=== PATIENT | female | born 1975 | race Caucasian/White ===

== ENCOUNTER 2019-02-12 20:37 | Emergency (ER) | payer MEDICAID ==
[~2019-02-12] VITALS: Ht 162.6 cm; Wt 70.0 kg
[~2019-02-12 20:37] MED LIST: CEPH-443 PO; FER325 PO; LEVO500T10 PO; METR-121 PO; PHEN-538 PO
[2019-02-12] MEDS ORDERED: morphine 4 MG/ML VIAL IV STA (22:26)
[2019-02-12] MEDS ORDERED: ONDANSETRON 4 MG INJ IV STA (22:26)
[2019-02-12] MEDS ORDERED: SOD CHLORIDE 0.9% 500 ML IV STA (22:26)
[2019-02-12 22:30] VITALS: Ht 162.6 cm; Wt 70.0 kg
[2019-02-12] MEDS ORDERED: FAMO20TA18 PO (23:00)
--- NOTE | 2019-02-13 00:33 | ERD ---
ER Documentation Chief Complaint Chief Complaint EPIGASTRIC PAIN X TODAY HPI This a 44-year-old female comes in with epigastric and right upper quadrant abdominal pain for 1 day. Denies any fevers or chills. Pain is mild to moderat e in intensity radiation epigastric region to the right upper quadrant. There is associated nausea but no vomiting. No chills. No other current problems. ROS All systems reviewed and are negative except as per history of present illness. Medications Home Meds Reported Medications Famotidine* (Famotidine*) 20 Mg Tablet, 20 MG PO DAILY, #30 TAB 02/12/19 Discontinued Scripts Phenazopyridine Hcl* (Pyridium*) 200 Mg Tab, 200 MG PO TID PRN for URINARY PAIN, #6 TAB Prov:HOLA WATTS MD 05/30/16 Cephalexin* (Keflex*) 500 Mg Capsule, 500 MG PO QID for 5 Days, CAP Prov:HOLA WATTS MD 05/30/16 Ferrous Sulfate* (Ferrous Sulfate*) 325 Mg Tabec, 325 MG PO BID for 30 Days, TAB Prov:CHAYO BERNAL NP 03/31/16 Metronidazole (Flagyl) 500 Mg Tab, 500 MG PO Q8 for 14 Days, TAB Prov:CHAYO BERNAL NP 03/31/16 Levofloxacin* (Levofloxacin*) 500 Mg Tablet, 500 MG PO DAILY for 14 Days, TAB Prov:CHAYO BERNAL NP 03/31/16 Allergies Allergies: Coded Allergies: No Known Allergies (Unverified Allergy, Unknown, 02/12/19) PMhx/Soc History of Surgery: Yes (Tubal ligation) Anesthesia Reaction: No Hx Neurological Disorder: No Hx Respiratory Disorders: No Hx Cardiac Disorders: No Hx Psychiatric Problems: No Hx Miscellaneous Medical Probl: No Hx Alcohol Use: No Hx Substance Use: No Hx Tobacco Use: No Physical Exam Vitals Vital Signs Date Temp Pulse Resp B/P (MAP) Pulse Ox O2 O2 Flow FiO2 Time Delivery Rate 02/13/19 97.4 64 12 98/67 (77) 100 Room Air 00:03 02/12/19 97.4 78 13 106/61 99 Room Air 23:14 (76) 02/12/19 97.4 78 18 121/67 99 Room Air 22:30 (85) 02/12/19 98.8 78 18 134/78 99 22:30 (96) 02/12/19 97.4 75 18 121/67 99 20:59 (85) Physical Exam Const: No acute distress Head: Atraumatic Eyes: Normal Conjunctiva ENT: Normal External Ears, Nose and Mouth. Neck: Full range of motion. No meningismus. Resp: Clear to auscultation bilaterally Cardio: Regular rate and rhythm, no murmurs Abd: Soft, non tender, non distended. Normal bowel sounds Skin: No petechiae or rashes Back: No midline or flank tenderness Ext: No cyanosis, or edema Neur: Awake and alert Psych: Normal Mood and Affect Result Diagram: 02/12/19223802/12/192238 Results 24 hrs Laboratory Tests Test 02/12/19 22:39 White Blood Count 7.3 10^3/ul Red Blood Count 4.71 10^6/ul Hemoglobin 13.0 g/dl Hematocrit 39.8 % Mean Corpuscular Volume 84.5 fl Mean Corpuscular Hemoglobin 27.6 pg Mean Corpuscular Hemoglobin Concent 32.7 g/dl Red Cell Distribution Width 12.3 % Platelet Count 213 10^3/UL Mean Platelet Volume 9.6 fl Immature Granulocytes % 0.400 % Neutrophils % 71.9 % Lymphocytes % 21.8 % Monocytes % 4.8 % Eosinophils % 0.8 % Basophils % 0.3 % Nucleated Red Blood Cells % 0.0 /100WBC Immature Granulocytes # 0.030 10^3/ul Neutrophils # 5.2 10^3/ul Lymphocytes # 1.6 10^3/ul Monocytes # 0.4 10^3/ul Eosinophils # 0.1 10^3/ul Basophils # 0.0 10^3/ul Nucleated Red Blood Cells # 0.0 10^3/ul Urine Color RED Urine Clarity SLIGHTLY CLOUDY Urine pH 7.0 Urine Specific [place] 1.008 Urine Ketones NEGATIVE mg/dL Urine Nitrite NEGATIVE mg/dL Urine Bilirubin NEGATIVE mg/dL Urine Urobilinogen NEGATIVE mg/dL Urine Leukocyte Esterase 1+ Elaina/ul Urine Microscopic RBC > 182 /HPF Urine Microscopic WBC 56 /HPF Urine Squamous Epithelial Cells MODERATE /HPF Urine Hemoglobin 3+ mg/dL Urine Glucose NEGATIVE mg/dL Urine Total Protein 1+ mg/dl Sodium Level 142 mmol/L Potassium Level 3.7 mmol/L Chloride Level 102 mmol/L Carbon Dioxide Level 29 mmol/L Anion Gap 11 Blood Urea Nitrogen 10 mg/dl Creatinine 0.78 mg/dl Est Glomerular Filtrat Rate mL/min > 60 mL/min Glucose Level 109 mg/dl Calcium Level 9.6 mg/dl Total Bilirubin 0.4 mg/dl Direct Bilirubin 0.00 mg/dl Indirect Bilirubin 0.4 mg/dl Aspartate Amino Transf (AST/SGOT) 76 IU/L Alanine Aminotransferase (ALT/SGPT) 50 IU/L Alkaline Phosphatase 94 IU/L Total Protein 7.9 g/dl Albumin 4.5 g/dl Globulin 3.40 g/dl Albumin/Globulin Ratio 1.32 Lipase 44 U/L Current Medications Medications Dose Sig/Bk Start Time Status Last (Trade) Ordered Route PRN Stop Time Admin Dose Reason Admin Sodium 500 ml @ Q1H STAT 02/12/19 DC 02/12/19 Chloride 500 mls/hr IV 22:26 22:53 02/12/19 23:25 Morphine 4 mg ONCE STAT 02/12/19 DC 02/12/19 Sulfate IV 22:26 22:53 (morphine) 02/12/19 22:27 Ondansetron 4 mg ONCE STAT 02/12/19 DC 02/12/19 HCl (Zofran IV 22:26 22:53 Inj) 02/12/19 22:27 Procedures/MDM Emergency department course: Patient seen and evaluated triage nurse. Placed in bed from evaluation. Outside ultrasound and stat x-ray. Is given pain medication and nausea medication along with a fluid bolus. Serial exams are stable. Diagnostic data: Chest X-ray 1V Interpreted by me: Soft Tissue: No acute abnormalities Bones: No acute abnormalities Mediastinum/Cardiac Silhouette/Lungs: [No acute abnormalities] Ultrasound shows cholelithiasis. Please see radiologist full dictation for full report Medical decision making: Patient's gastrointestinal symptoms have stabilized while in the department. No evidence of severe dehydration, sepsis, or surgical abdomen. Extensive discussion with family and patient that occult disease cannot be ruled out. 8 hour recheck for repeat abdominal exam is planned. Departure Diagnosis: Primary Impression: Abdominal pain Abdominal location: unspecified location Qualified Codes: R10.9 - Unspecif ied abdominal pain Condition: Stable ABRAM PHILLIPCorinna Feb 13, 2019 00:33
[2019-02-13] MEDS ORDERED: ONDA4TAB14 PO (00:34)
[2019-02-13] MEDS ORDERED: TRAM50TA2 PO (00:34)
[2019-02-13 01:02] VITALS: BP 97/64; PULSE 62; RESP 14
== END 2019-02-13 01:12 | disposition home or self-care (01) ==
LOC: E/R 20:37
DX: R10.13 Epigastric pain (principal); R10.11 Right upper quadrant pain; R11.0 Nausea
CPT/HCPCS: 36415; 71045; 76705; 80053; 81001; 83690; 85025; 96374; 96375; J2270; J2405; J7040; Z7502

== ENCOUNTER 2019-04-15 06:03 | Emergency (ER) | payer MEDICAID ==
[~2019-04-15] VITALS: Ht 162.6 cm; Wt 79.8 kg
[~2019-04-15 06:03] MED LIST changes: -CEPH-443 PO; +FAMO20TA18 PO; -FER325 PO; -LEVO500T10 PO; -METR-121 PO; +ONDA4TAB14 PO; -PHEN-538 PO; +TRAM50TA2 PO
[2019-04-15 06:12] VITALS: BP 109/67; PULSE 77; RESP 18; Ht 162.6 cm; Wt 79.8 kg
--- NOTE | 2019-04-15 06:29 | ERD ---
ER Documentation Chief Complaint Chief Complaint painful urination the whole nite [facility] Patient is a 44-year-old female with no past medical history presents the ER for concerns of dysuria x1 day. Patient states she is up throughout the night due to dysuria and urinary frequency. Patient denies fevers or chills. Patient denies any hematuria. Patient denies any flank pain. ROS All systems reviewed and are negative except as per history of present illness. Medications Home Meds Active Scripts Ondansetron (Ondansetron Odt) 4 Mg Tab.rapdis, 4 MG PO Q6H PRN for NAUSEA AND/OR VOMITING, #10 TAB Prov:ABRAM PHILLIP 02/13/19 Tramadol HCl (Tramadol HCl) 50 Mg Tablet, 50 MG PO Q4 PRN for PAIN, #20 TAB Prov:ABRAM PHILLIP 02/13/19 Reported Medications Famotidine* (Famotidine*) 20 Mg Tablet, 20 MG PO DAILY, #30 TAB 02/12/19 Allergies Allergies: Coded Allergies: No Known Allergies (Unverified Allergy, Unknown, 02/12/19) PMhx/Soc History of Surgery: Yes (Tubal ligation) Anesthesia Reaction: No Hx Neurological Disorder: No Hx Respiratory Disorders: No Hx Cardiac Disorders: No Hx Psychiatric Problems: No Hx Miscellaneous Medical Probl: No Hx Alcohol Use: No Hx Substance Use: No Hx Tobacco Use: No FmHx Family History: No diabetes Physical Exam Vitals Vital Signs Date Temp Pulse Resp B/P (MAP) Pulse Ox O2 O2 Flow FiO2 Time Delivery Rate 04/15/19 98.0 77 18 109/67 99 06:12 (81) Physical Exam GENERAL: Well-developed, well-nourished female. Appears in no acute distress. HEAD: Normocephalic, atraumatic. EYES: Pupils are equally reactive bilaterally. EOMs grossly intact. No conjunctival erythema. NECK: Supple. No meningismus. Normal range of motion of the neck. LUNG: Clear to auscultation bilaterally. No rhonchi, wheezing, rales or coarse breath sounds. HEART: Regular rate and rhythm. No murmurs, rubs or gallops. ABDOMEN: No scars, ecchymosis or rashes noted. Soft, nontender, and nondistended. Positive bowel sounds in all four quadrants. No rebound tenderness, no guarding. (-) McBurney's point tenderness. No CVA tenderness. BACK: No midline tenderness. EXTREMITIES: Equal pulses bilaterally. No peripheral clubbing, cyanosis or edema. No unilateral leg swelling. NEUROLOGIC: Alert and oriented. Moving all four extremities without any difficulty. Normal speech. Steady gait. SKIN: Normal color. Warm and dry. No rashes or lesions. Results 24 hrs Laboratory Tests Test 04/15/19 06:31 Bedside Urine pH (LAB) 6.0 Bedside Urine Protein (LAB) Negative Bedside Urine Glucose (UA) Negative Bedside Urine Ketones (LAB) Negative Bedside Urine Blood 2+ Bedside Urine Nitrite (LAB) Negative Bedside Urine Leukocyte Esterase (L 2+ POC Beta HCG, Qualitative NEGATIVE Procedures/MDM MEDICAL DECISION MAKING: This is a 44-year-old female who presents to the ER for concerns of pain with urination. Vital signs were reviewed. Patient was afebrile. UA showed 2+ leukocyte esterase. Urine was negative. Given these findings, the patients presentation is most consistent with urinary tract infection. I have a much lower clinical concern for pyelonephritis, nephrolithiasis, appendicitis, diverticulitis, constipation, ectopic , PID, ovarian torsion, or tubo- ovarian abscess. PRESCRIPTIONS: Macrobid DISCHARGE: At this time, patient is stable for discharge and outpatient management. I have instructed the patient to follow-up with his/her primary care physician in 1-2 days. Patient should repeat UA in 2 weeks to check for resolution of urinary tract infection. If symptoms persist, patient may need to see a specialist for further examinations and testing. I have instructed the patient to promptly return to the ER at any time for any new or worsening symptoms including increased pain, fever, nausea, vomiting, urinary changes or weakness. The patient and/or family expressed understanding of and agreement with this plan. All questions were answered. Home care instructions were provided. Disclaimer: Inadvertent spelling and grammatical errors are likely due to EHR/dictation software use and do not reflect on the overall quality of patient care. Also, please note that the electronic time recorded on this note does not necessarily reflect the actual time of the patient encounter. Departure Diagnosis: Primary Impression: UTI (urinary tract infection) Urinary tract infection type: site unspecified Hematuria presence: without hematuria Qualified Codes: N39.0 - Urinary tract infection, site not specified Condition: Fair Patient Instructions: Understanding Urinary Tract Infections (UTIs) Referrals: [facility] YOU HAVE RECEIVED A MEDICAL SCREENING EXAM AND THE RESULTS INDICATE THAT YOU DO NOT HAVE A CONDITION THAT REQUIRES URGENT TREATMENT IN THE EMERGENCY DEPARTMENT. FURTHER EVALUATION AND TREATMENT OF YOUR CONDITION CAN WAIT UNTIL YOU ARE SEEN IN YOUR DOCTORS OFFICE WITHIN THE NEXT 1-2 DAYS. IT IS YOUR RESPONSIBILITY TO MAKE AN APPOINTMENT FOR FOLOW-UP CARE. IF YOU HAVE A PRIMARY DOCTOR --you should call your primary doctor and schedule an appointment IF YOU DO NOT HAVE A PRIMARY DOCTOR YOU CAN CALL OUR PHYSICIAN REFERRAL HOTLINE AT IF YOU CAN NOT AFFORD TO SEE A PHYSICIAN YOU CAN CHOSE FROM THE FOLLOWING [facility] [address] [facility] [address] [facility] [address] [facility] [address] [facility] [address] [facility] [facility] [address] [facility] [facility] YOU HAVE RECEIVED A MEDICAL SCREENING EXAM AND THE RESULTS INDICATE THAT YOU DO NOT HAVE A CONDITION THAT REQUIRES URGENT TREATMENT IN THE EMERGENCY DEPARTMENT. FURTHER EVALUATION AND TREATMENT OF YOUR CONDITION CAN WAIT UNTIL YOU ARE SEEN IN YOUR DOCTORS OFFICE WITHIN THE NEXT 1-2 DAYS. IT IS YOUR RESPONSIBILITY TO MAKE AN APPOINTMENT FOR FOLOW-UP CARE. IF YOU HAVE A PRIMARY DOCTOR --you should call your primary doctor and schedule and appointment IF YOU DO NOT HAVE A PRIMARY DOCTOR YOU CAN CALL OUR PHYSICIAN REFERRAL HOTLINE AT . IF YOU CAN NOT AFFORD TO SEE A PHYSICIAN YOU CAN CHOSE FROM THE FOLLOWING [facility] INSTITUTIONS: [facility] [address] [place] [address] [facility] [address] [place] [address] [facility] [address] [place] [address] Additional Instructions: Llame al doctor MAANA y sindhu campbell ALISTAIR PARA DENTRO DE 1-2 MC.Dgale a la secretaria que nosotros le instruimos hacer esta alistair.Avise o llame si buck condicin se empeora antes de la alistair. Regresa aqui si peor o no mejor. HERNESTO GALLEGOS PA-C April 15, 2019 06:29
[2019-04-15] MEDS ORDERED: NITR-58 PO (06:56)
== END 2019-04-15 06:55 | disposition home or self-care (01) ==
LOC: FTE 06:03
DX: N39.0 Urinary tract infection, site not specified (principal)
CPT/HCPCS: 81003; 81025; Z7502; 99283

== ENCOUNTER 2019-05-08 10:26 | Emergency (ER) | payer SELFPAY ==
[~2019-05-08] VITALS: Ht 162.6 cm; Wt 81.0 kg
[~2019-05-08 10:26] MED LIST changes: +NITR-58 PO
[2019-05-08 10:40] VITALS: BP 104/57; PULSE 59; RESP 18; Ht 162.6 cm; Wt 81.0 kg
== END 2019-05-08 14:55 | disposition left against medical advice (07) ==
LOC: FTE 10:26
DX: Z53.21 Procedure and treatment not carried out due to patient leaving prior to being seen by health care provider (principal)

== ENCOUNTER 2019-06-03 18:13 | Emergency (ER) | payer MEDICAID ==
[~2019-06-03] VITALS: Ht 160 cm; Wt 79.0 kg
[2019-06-03 18:33] VITALS: BP 103/55; PULSE 76; RESP 18; Ht 160 cm; Wt 79.0 kg
--- NOTE | 2019-06-03 19:44 | ERD ---
ER Documentation Chief Complaint Chief Complaint lower abd pain x 3 days HPI 44-year-old female presents for evaluation of lower abdominal pain, described as left lower quadrant with radiation to the flank. She states that she had a similar episode in the past that she was diagnosed with colitis. She is no history of abdominal surgeries, she denies fever, denies nausea vomiting, denies dysuria. Symptoms are intermittent. ROS All systems reviewed and are negative except as per history of present illness. Medications Home Meds Active Scripts Nitrofurantoin Monohyd Macrocr* (Macrobid*) 100 Mg Capsr, 100 MG PO BID for 5 Days, CAP Prov:HERNESTO GALLEGOS PA-C 04/15/19 Ondansetron (Ondansetron Odt) 4 Mg Tab.rapdis, 4 MG PO Q6H PRN for NAUSEA AND/OR VOMITING, #10 TAB Prov:ABRAM PHILLIP 02/13/19 Tramadol HCl (Tramadol HCl) 50 Mg Tablet, 50 MG PO Q4 PRN for PAIN, #20 TAB Prov:ABRAM PHILLIP 02/13/19 Reported Medications Famotidine* (Famotidine*) 20 Mg Tablet, 20 MG PO DAILY, #30 TAB 02/12/19 Allergies Allergies: Coded Allergies: No Known Allergies (Unverified Allergy, Unknown, 02/12/19) PMhx/Soc History of Surgery: Yes (Tubal ligation) Anesthesia Reaction: No Hx Neurological Disorder: No Hx Respiratory Disorders: No Hx Cardiac Disorders: No Hx Psychiatric Problems: No Hx Miscellaneous Medical Probl: No Hx Alcohol Use: No Hx Substance Use: No Hx Tobacco Use: No Physical Exam Vitals Vital Signs Date Temp Pulse Resp B/P (MAP) Pulse Ox O2 O2 Flow FiO2 Time Delivery Rate 06/03/19 98.3 76 18 103/55 100 18:33 (71) Physical Exam Const: No acute distress Head: Atraumatic Eyes: Normal Conjunctiva ENT: Normal External Ears, Nose and Mouth. Neck: Full range of motion. No meningismus. Resp: Clear to auscultation bilaterally Cardio: Regular rate and rhythm, no murmurs Abd: Soft, left lower quadrant tenderness, no rebound or guarding, non distended. Normal bowel sounds Skin: No petechiae or rashes Back: No midline or flank tenderness Ext: No cyanosis, or edema Neur: Awake and alert Psych: Normal Mood and Affect Result Diagram: 06/03/19194106/03/191941 Results 24 hrs Laboratory Tests Test 06/03/19 19:22 06/03/19 19:23 06/03/19 19:42 Bedside Urine pH (LAB) 5.5 Bedside Urine Protein (LAB) Negative Bedside Urine Glucose (UA) Negative Bedside Urine Ketones (LAB) Negative Bedside Urine Blood Negative Bedside Urine Nitrite (LAB) Negative Bedside Urine Leukocyte Esterase (L Negative POC Beta HCG, Qualitative NEGATIVE White Blood Count 4.8 10^3/ul Red Blood Count 4.73 10^6/ul Hemoglobin 13.0 g/dl Hematocrit 39.5 % Mean Corpuscular Volume 83.5 fl Mean Corpuscular Hemoglobin 27.5 pg Mean Corpuscular Hemoglobin Concent 32.9 g/dl Red Cell Distribution Width 12.3 % Platelet Count 190 10^3/UL Mean Platelet Volume 9.7 fl Immature Granulocytes % 0.200 % Neutrophils % 58.4 % Lymphocytes % 33.5 % Monocytes % 5.6 % Eosinophils % 1.9 % Basophils % 0.4 % Nucleated Red Blood Cells % 0.0 /100WBC Immature Granulocytes # 0.010 10^3/ul Neutrophils # 2.8 10^3/ul Lymphocytes # 1.6 10^3/ul Monocytes # 0.3 10^3/ul Eosinophils # 0.1 10^3/ul Basophils # 0.0 10^3/ul Nucleated Red Blood Cells # 0.0 10^3/ul Urine Color YELLOW Urine Clarity SLIGHTLY CLOUDY Urine pH 6.0 Urine Specific [place] 1.008 Urine Ketones NEGATIVE mg/dL Urine Nitrite NEGATIVE mg/dL Urine Bilirubin NEGATIVE mg/dL Urine Urobilinogen NEGATIVE mg/dL Urine Leukocyte Esterase NEGATIVE Elaina/ul Urine Microscopic RBC 1 /HPF Urine Microscopic WBC 1 /HPF Urine Squamous Epithelial Cells FEW /HPF Urine Mucus FEW /HPF Urine Hemoglobin NEGATIVE mg/dL Urine Glucose NEGATIVE mg/dL Urine Total Protein NEGATIVE mg/dl Sodium Level 143 mmol/L Potassium Level 3.6 mmol/L Chloride Level 103 mmol/L Carbon Dioxide Level 31 mmol/L Anion Gap 9 Blood Urea Nitrogen 8 mg/dl Creatinine 0.73 mg/dl Est Glomerular Filtrat Rate mL/min > 60 mL/min Glucose Level 116 mg/dl Calcium Level 9.2 mg/dl Total Bilirubin 0.6 mg/dl Direct Bilirubin 0.00 mg/dl Indirect Bilirubin 0.6 mg/dl Aspartate Amino Transf (AST/SGOT) 18 IU/L Alanine Aminotransferase (ALT/SGPT) 17 IU/L Alkaline Phosphatase 49 IU/L Total Protein 7.4 g/dl Albumin 4.3 g/dl Globulin 3.10 g/dl Albumin/Globulin Ratio 1.38 Lipase 35 U/L Procedures/MDM This 44-year-old female presents for evaluation of abdominal pain. On exam she had no peritoneal signs, differential diagnosis considered include UTI, kidney stones, pyelonephritis, versus intra-abdominal pathology such as diverticulitis. Labs returned and overall unremarkable, currently pending is the read for CT abdomen pelvis, if negative patient can likely be discharged for outpatient follow-up, signed out to night doctor. EKG: Rate/Rhythm: Normal Sinus Rhythm QRS, ST, T-waves: No changes consistent w/ acute ischemia Impression: No evidence of ischemia or arrhythmia Departure Diagnosis: Primary Impression: Abdominal pain Abdominal location: unspecified location Qualified Codes: R10.9 - Unspecified abdominal pain Condition: Stable CORAL ARCEO MD Jun 03, 2019 19:44
[2019-06-03] MEDS ORDERED: FAMO-96 PO (22:29)
== END 2019-06-03 23:23 | disposition home or self-care (01) ==
LOC: E/R 18:13
DX: R10.32 Left lower quadrant pain (principal)
CPT/HCPCS: 36415; 74176; 80053; 81001; 81025; 83690; 85025; 93005; Z7502; 81003

== ENCOUNTER 2019-06-28 23:33 | Emergency (ER) | payer MEDICAID ==
[~2019-06-28] VITALS: Ht 162.6 cm; Wt 78.7 kg
[~2019-06-28 23:33] MED LIST changes: +FAMO-96 PO; +HYDR-4011 PO; +ONDA4TAB8 PO
[2019-06-28 23:35] VITALS: Ht 162.6 cm; Wt 78.7 kg
[2019-06-29] MEDS ORDERED: LACTATED RINGER'S 1,000 ML IV STA (01:18)
[2019-06-29] MEDS ORDERED: FAMOTIDINE 20 MG INJ IV STA (01:18)
[2019-06-29] MEDS ORDERED: ONDANSETRON 4 MG INJ IV STA (01:18)
[2019-06-29] MEDS ORDERED: morphine 4 MG/ML VIAL IV STA (01:18)
--- NOTE | 2019-06-29 02:08 | ERD ---
ER Documentation Chief Complaint Chief Complaint RUQ ABDOMINAL PAIN WITH N/V SINCE THIS MORNING HPI This is a 44-year-old female with a history of a gallstones who presents to the ER for evaluation of abdominal pain. The patient states that her abdominal pain is located in the midportion of the abdomen and feels similar to previous gallstone pain. The patient states that she has not seen a surgeon for this and came to the ER today for evaluation. The patient states she has mild nausea but denies any vomiting and denies any chest pain or shortness of breath associated with this. ROS All systems reviewed and are negative except as per history of present illness. Medications Home Meds Active Scripts Famotidine* (Pepcid*) 20 Mg Tablet, 20 MG PO BID for 10 Days, TAB Prov:CORAL ARCEO MD 06/03/19 Nitrofurantoin Monohyd Macrocr* (Macrobid*) 100 Mg Capsr, 100 MG PO BID for 5 Days, CAP Prov:HERNESTO GALLEGOS PA-C 04/15/19 Ondansetron (Ondansetron Odt) 4 Mg Tab.rapdis, 4 MG PO Q6H PRN for NAUSEA AND/OR VOMITING, #10 TAB Prov:ABRAM PHILLIP 02/13/19 Tramadol HCl (Tramadol HCl) 50 Mg Tablet, 50 MG PO Q4 PRN for PAIN, #20 TAB Prov:ABRAM PHILLIP S. 02/13/19 Reported Medications Famotidine* (Famotidine*) 20 Mg Tablet, 20 MG PO DAILY, #30 TAB 02/12/19 Allergies Allergies: Coded Allergies: No Known Allergies (Unverified Allergy, Unknown, 02/12/19) PMhx/Soc History of Surgery: Yes (Tubal ligation) Anesthesia Reaction: No Hx Neurological Disorder: No Hx Respiratory Disorders: No Hx Cardiac Disorders: No Hx Psychiatric Problems: No Hx Miscellaneous Medical Probl: Yes (gallstones, colitis in past x 1 episode) Hx Alcohol Use: No Hx Substance Use: No Hx Tobacco Use: No Physical Exam Vitals Vital Signs Date Temp Pulse Resp B/P (MAP) Pulse Ox O2 O2 Flow FiO2 Time Delivery Rate 06/28/19 98.0 74 18 104/56 97 23:35 (72) Physical Exam INITIAL VITAL SIGNS: Reviewed by me GENERAL: The patient is well developed and appropriate for usual state of health in no apparent distress HEENT: Pupils equal, round, and reactive to light. EOMI. There is no scleral icterus. NECK: C-spine is soft and supple, there is no meningismus. There is no ce rvical lymphadenopathy. LUNGS: Clear to auscultation bilaterally. There are no rales, wheezes or rh onchi. HEART: Regular rate and rhythm, no murmurs, clicks, rubs or gallops. ABDOMEN: Gastric tenderness to palpation, negative Lewis sign, soft, non- tender, non-distended. There are bowel sounds in all four quadrants. No rebound or guarding. EXTREMITIES: There is no peripheral cyanosis or edema. No focal swelling or erythema. NEUROLOGICAL: The patient moves all four extremities with 5/5 strength. Cranial nerves II - XII are intact. Normal gait. Alert and oriented SKIN: There is no apparent rash or petechiae. HEME/LYMPHATIC: There is no evidence of excessive bruising or lymphedema. PSYCHIATRIC: The patient does not appear anxious or depressed. Result Diagram: 06/29/1913006/29/19 0131 Results 24 hrs Laboratory Tests Test 06/29/19 01:31 White Blood Count 8.5 10^3/ul Red Blood Count 4.79 10^6/ul Hemoglobin 13.3 g/dl Hematocrit 40.7 % Mean Corpuscular Volume 85.0 fl Mean Corpuscular Hemoglobin 27.8 pg Mean Corpuscular Hemoglobin Concent 32.7 g/dl Red Cell Distribution Width 11.9 % Platelet Count 239 10^3/UL Mean Platelet Volume 9.6 fl Immature Granulocytes % 0.600 % Neutrophils % 90.1 % Lymphocytes % 6.6 % Monocytes % 2.6 % Eosinophils % 0.0 % Basophils % 0.1 % Nucleated Red Blood Cells % 0.0 /100WBC Immature Granulocytes # 0.050 10^3/ul Neutrophils # 7.6 10^3/ul Lymphocytes # 0.6 10^3/ul Monocytes # 0.2 10^3/ul Eosinophils # 0.0 10^3/ul Basophils # 0.0 10^3/ul Nucleated Red Blood Cells # 0.0 10^3/ul Urine Color YELLOW Urine Clarity SLIGHTLY CLOUDY Urine pH 5.0 Urine Specific [place] 1.019 Urine Ketones NEGATIVE mg/dL Urine Nitrite NEGATIVE mg/dL Urine Bilirubin NEGATIVE mg/dL Urine Urobilinogen NEGATIVE mg/dL Urine Leukocyte Esterase NEGATIVE Elaina/ul Urine Microscopic RBC 5 /HPF Urine Microscopic WBC 6 /HPF Urine Squamous Epithelial Cells FEW /HPF Urine Mucus FEW /HPF Urine Hemoglobin 1+ mg/dL Urine Glucose NEGATIVE mg/dL Urine Total Protein NEGATIVE mg/dl Sodium Level 142 mmol/L Potassium Level 4.0 mmol/L Chloride Level 105 mmol/L Carbon Dioxide Level 27 mmol/L Anion Gap 10 Blood Urea Nitrogen 11 mg/dl Creatinine 0.76 mg/dl Est Glomerular Filtrat Rate mL/min > 60 mL/min Glucose Level 156 mg/dl Calcium Level 9.4 mg/dl Total Bilirubin 0.7 mg/dl Direct Bilirubin 0.00 mg/dl Indirect Bilirubin 0.7 mg/dl Aspartate Amino Transf (AST/SGOT) 157 IU/L Alanine Aminotransferase (ALT/SGPT) 114 IU/L Alkaline Phosphatase 82 IU/L Total Protein 8.2 g/dl Albumin 4.8 g/dl Globulin 3.40 g/dl Albumin/Globulin Ratio 1.41 Lipase 40 U/L Current Medications Medications Dose Sig/Bk Start Time Status Last (Trade) Ordered Route PRN Stop Time Admin Dose Reason Admin Lactated 1,000 ml @ Q1H STAT 06/29/19 06/29/19 Ringer's 1,000 mls/hr IV 01:18 06/29/19 01:47 02:17 Morphine 4 mg ONCE STAT 06/29/19 DC 06/29/19 Sulfate IV 01:18 06/29/19 01:47 (morphine) 01:20 Ondansetron 4 mg ONCE STAT 06/29/19 DC 06/29/19 HCl (Zofran IV 01:18 06/29/19 01:47 Inj) 01:20 Famotidine 20 mg ONCE STAT 06/29/19 DC 06/29/19 (Pepcid Iv) IV 01:18 06/29/19 01:47 01:20 Procedures/MDM Ultrasound gallbladder: No cholecystitis This 44-year-old female presents to the ER for evaluation of abdominal pain. She does have a history of gallstones and on my exam the patient had some tenderness to palpation in the epigastric region. The patient did have labs drawn and she has no signs of leukocytosis. She has mild transaminitis and she was given IV morphine. Her ultrasound shows gallstones with no signs of pericholecystic fluid. The patient does feel better on my reevaluation she is likely suffering from biliary colic secondary to her gallstones. She was advised she will need to follow-up with outpatient surgery to schedule an elective cholecystectomy. The patient verbalized understanding and is comfortable with her plan of care. She will be discharged home with a referral for outpatient surgery, Sriram Wynn. Departure Diagnosis: Primary Impression: Abdominal pain Additional Impressions: Biliary colic Cholelithiasis Condition: Fair MEDARDO DOLAN DO Jun 29, 2019 02:08
[2019-06-29 02:31] VITALS: BP 104/72; PULSE 61; RESP 18
== END 2019-06-29 02:39 | disposition home or self-care (01) ==
LOC: E/R 23:33
DX: K80.70 Calculus of gallbladder and bile duct without cholecystitis without obstruction (principal)
CPT/HCPCS: 76705; 80053; 81001; 83690; 85025; J2270; J2405; J7120; Z7610; 36415; 96361; 96374; 96375

== ENCOUNTER 2019-07-31 18:14 | Emergency (ER) | payer MEDICAID ==
[~2019-07-31] VITALS: Ht 157.5 cm; Wt 76.3 kg
[~2019-07-31 18:14] MED LIST changes: +CEPH-443 PO; +IBUP-1542 PO
[2019-07-31 18:28] VITALS: Ht 157.5 cm; Wt 76.3 kg
[2019-07-31] MEDS ORDERED: KETOROLAC 15 MG INJ IV STA (18:46)
[2019-07-31] MEDS ORDERED: LACTATED RINGER'S 1,000 ML IV STA (18:46)
[2019-07-31] MEDS ORDERED: ONDANSETRON 4 MG INJ IV STA (18:46)
[2019-07-31] MEDS ORDERED: CEFTRIAXONE 1 GM/50 ML (PMX) 50 ML IVPB ONE (20:00)
[2019-07-31 20:41] VITALS: BP 103/66; PULSE 74; RESP 16
== END 2019-07-31 20:46 | disposition home or self-care (01) ==
LOC: E/R 18:14
DX: G89.18 Other acute postprocedural pain (principal); N39.0 Urinary tract infection, site not specified
CPT/HCPCS: 36415; 80053; 81001; 83690; 85025; 85610; 85730; 96374; 96375; J0696; J1885; J2405; J7120; Z7502